=== PATIENT | female | born 1995 | race Caucasian/White ===

== ENCOUNTER 2018-03-07 00:10 | Outpatient (CLI) | payer OTHER, SELFPAY | END 2018-03-07 01:00 | disposition home or self-care (01) | LOC: M LDO 00:10 | DX: O26.853 Spotting complicating pregnancy, third trimester (principal); Z3A.28 28 weeks gestation of pregnancy | CPT/HCPCS: 76815 ==

== ENCOUNTER 2018-05-14 00:25 | Outpatient (CLI) | payer OTHER ==
[2018-05-14 04:06] LABS: CHLAMYDIA DNA AMPLIFICATION NEGATIVE (NEGATIVE); GC DNA AMPLIFICATION NEGATIVE (NEGATIVE)
== END 2018-05-14 01:48 | disposition home or self-care (01) ==
LOC: M LDO 00:25
DX: O47.1 False labor at or after 37 completed weeks of gestation (principal); Z3A.39 39 weeks gestation of pregnancy; O98.313 Other infections with a predominantly sexual mode of transmission complicating pregnancy, third trimester
CPT/HCPCS: 59025

== ENCOUNTER 2018-05-16 10:16 | Outpatient (CLI) | payer OTHER | END 2018-05-16 13:55 | disposition home or self-care (01) | LOC: M LDO 10:16 | DX: O47.1 False labor at or after 37 completed weeks of gestation (principal); Z3A.40 40 weeks gestation of pregnancy | CPT/HCPCS: 59025 ==

== ENCOUNTER 2018-05-17 03:46 | Inpatient (IN) | payer OTHER ==
[2018-05-17] MEDS: LR 1,000 ML IV (04:10)
[2018-05-17 04:41] LABS: HEMATOCRIT 33.4 % (36.0-47.0); MEAN CORPUSCULAR HEMOGLOBIN 29.9 pg (27.0-33.0); MEAN CORPUSCULAR HGB CONC 32.9 g/dl (32.0-36.5); MEAN CORPUSCULAR VOLUME 90.8 fl (80.0-96.0); PLATELET COUNT, AUTOMATED 250 10^3/uL (150-450); RED BLOOD COUNT 3.68 10^6/uL (4.00-5.40); RED CELL DISTRIBUTION WIDTH 13.8 % (11.5-14.5); WHITE BLOOD COUNT 13.5 10^3/uL (4.0-10.0)
[2018-05-17 04:50] LABS: APPEARANCE, URINE CLEAR (CLEAR); BACTERIA, URINE AUTO 1+ (NEGATIVE); BILIRUBIN, URINE AUTO NEGATIVE (NEGATIVE); BLOOD, URINE BLOOD NEGATIVE (NEGATIVE); COLOR, URINE STRAW (YELLOW); GLUCOSE, URINE (UA) AUTO NEGATIVE (NEGATIVE); KETONE, URINE AUTO NEGATIVE (NEGATIVE); LEUKOCYTE ESTERASE, URINE AUTO TRACE (NEGATIVE); NITRITE, URINE AUTO NEGATIVE (NEGATIVE); PROTEIN, URINE AUTO NEGATIVE (NEGATIVE); RBC, URINE AUTO 1 /HPF (0-3); SPECIFIC GRAVITY URINE AUTO 1.006 (1.002-1.035); SQUAMOUS EPITHELIAL CELL UR AU 2 /HPF (0-6); UROBILINOGEN, URINE AUTO 0.2 mg/dL (0.0-2.0); WBC, URINE AUTO 5 /HPF (0-3)
[2018-05-17] MEDS ORDERED: PROMETHAZINE INJ 25 MG/ML VIAL (J2550) As Ordered (04:59)
[2018-05-17] MEDS ORDERED: BUTORPHANOL 2 MG/ML INJ (J0595) As Ordered (04:59)
[2018-05-17 05:01] LABS: AMPHETAMINES URINE REFLEX NEGATIVE (NEGATIVE); BARBITURATES URINE REFLEX NEGATIVE (NEGATIVE); BENZODIAZEPINES URINE REFLEX NEGATIVE (NEGATIVE); COCAINE METABOLITE URINE REFLE NEGATIVE (NEGATIVE); METHADONE URINE REFLEX NEGATIVE (NEGATIVE); OPIATES URINE REFLEX NEGATIVE (NEGATIVE); PHENCYCLIDINE URINE REFLEX NEGATIVE (NEGATIVE)
[2018-05-17 05:02] LABS: CANNABINOIDS URINE REFLEX PENDING CONFIRMATION (NEGATIVE)
[2018-05-17] MEDS: PROMETHAZINE INJ 25 MG/ML VIAL (J2550) IV (05:12)
[2018-05-17] MEDS: BUTORPHANOL 2 MG/ML INJ (J0595) IV (05:12)
[2018-05-17] MEDS ORDERED: FENTANYL 2MCG/ML ROPIVACAINE 0.2% IN 0.9% NACL 200ML IVBAG As Ordered (08:13)
[2018-05-17] MEDS: PRENATAL VITAMINS CHEWABLE TABLET PO (09:00)
[2018-05-17] MEDS ORDERED: LACTATED RINGER'S 1000 ML IV (10:15)
[2018-05-17] MEDS ORDERED: EPIDURAL COMMENT XX (10:15)
[2018-05-17] MEDS ORDERED: EPIDURAL/PCA KEYS XX (10:15)
[2018-05-17] MEDS ORDERED: NALOXONE INJ 0.4 MG/1 ML VIAL (J2310) IV (10:15)
[2018-05-17] MEDS ORDERED: ePHEDrine SULFATE 25 MG/5 ML(5MG/ML) SYRINGE IV (10:15)
[2018-05-17] MEDS ORDERED: ONDANSETRON 4MG/2ML VIAL (J2405) IV ×2 (10:15→12:15)
[2018-05-17] MEDS ORDERED: REFRIGERATOR IV KEYS XX (10:15)
[2018-05-17] MEDS ORDERED: diphenhydrAMINE INJ 50MG/ML VIAL (J1200) IV (10:15)
[2018-05-17] MEDS ORDERED: FENTANYL/ROPIVACAINE/NACL BAG 200 ML EPIDURAL (10:15)
[2018-05-17] MEDS ORDERED: OXYTOCIN 30 UNITS IN 0.9% NaCl 500ML IV BAG (J2590) As Ordered (10:53)
[2018-05-17 12:08] LABS: CORD GAS ABE V -9.2; CORD GAS HCO3 V 17.8 MEQ/L; CORD GAS O2 SAT V 66.5 %; CORD GAS PCO2 V 42.2 mmHg; CORD GAS PH V 7.243 UNITS; CORD GAS PO2 V 30.4 mmHg; CORD GAS SBC V 16.6 MEQ/L; CORD GAS TCO2 V 19.1 MEQ/L
[2018-05-17 12:09] LABS: CORD GAS ABE A -10.8; CORD GAS HCO3 A 19.9 MEQ/L; CORD GAS O2 SAT A 19.4 %; CORD GAS PCO2 A 64.7 mmHg; CORD GAS PH A 7.106 UNITS; CORD GAS PO2 A 14.5 mmHg; CORD GAS SBC A 14.5 MEQ/L; CORD GAS TCO2 A 21.9 MEQ/L
[2018-05-17] MEDS: OXYTOCIN DRIP 30 UNITS in APPROPRIATE DILUENT 1 EA IV ×2 (12:13→14:11)
[2018-05-17] MEDS ORDERED: MEASLES,MUMPS,RUBELLA VACCINE INJ (MMR-II) (90707) SC (12:15)
[2018-05-17] MEDS ORDERED: DOCUSATE SODIUM 100 MG CAP PO (12:15)
[2018-05-17] MEDS ORDERED: ANUSOL HC CREAM 30GM TOP (12:15)
[2018-05-17] MEDS ORDERED: METHYLERGONOVINE MALEATE 0.2 MG TAB PO (12:15)
[2018-05-17] MEDS ORDERED: DIBUCAINE 1% OINTMENT 30GM TOP (12:15)
[2018-05-17] MEDS ORDERED: ACETAMINOPHEN TAB 650MG DOSE (2X325MG) PO (12:15)
[2018-05-17] MEDS: OXYTOCIN INJ 10 UNITS/ML VIAL (J2590) IV (12:30)
[2018-05-17] MEDS: IBUPROFEN 600 MG TAB PO (14:15)
[2018-05-18] MEDS: PRENATAL VITAMINS CHEWABLE TABLET PO (09:02)
[2018-05-18] MEDS: IBUPROFEN 600 MG TAB PO (09:04)
== END 2018-05-18 18:09 | disposition home or self-care (01) | DRG 775 ==
LOC: M LDO 03:46 → M LDI 04:04 → M OBS 15:36
PROVIDERS: Obstetrics & Gynecology
PROC: 0W8NXZZ Division of Female Perineum, External Approach (ICD-10-PCS; principal; 2018-05-17)
DX: O76 Abnormality in fetal heart rate and rhythm complicating labor and delivery (principal); Z37.0 Single live birth; Z3A.39 39 weeks gestation of pregnancy

== ENCOUNTER 2018-08-23 19:17 | Emergency (ER) | payer OTHER ==
[2018-08-23 22:29] LABS: KETONE, URINE AUTO RFX NEGATIVE (NEGATIVE); LEUKOCYTE ESTERASE UR AUTO RFX NEGATIVE (NEGATIVE); MUCUS, URINE RFX SMALL (NEGATIVE); NITRITE, URINE AUTO RFX NEGATIVE (NEGATIVE); RBC, URINE AUTO RFX 10 /HPF (0-3); SPECIFIC GRAVITY UR AUTO RFX 1.018 (1.002-1.035); SQUAM EPITHELIAL CELL UR AURFX 4 /HPF (0-6); WBC, URINE AUTO RFX 4 /HPF (0-3)
[2018-08-23 23:38] LABS: CHLAMYDIA DNA AMPLIFICATION NEGATIVE (NEGATIVE); GC DNA AMPLIFICATION NEGATIVE (NEGATIVE)
== END 2018-08-23 23:53 | disposition home or self-care (01) ==
LOC: M ED 19:17
DX: Z20.2 Contact with and (suspected) exposure to infections with a predominantly sexual mode of transmission (principal); Z72.0 Tobacco use
CPT/HCPCS: 81001

== ENCOUNTER 2018-11-27 14:04 | Emergency (ER) | payer OTHER ==
[~2018-11-27] VITALS: Ht 170.2 cm; Wt 56.8 kg
[~2018-11-27 14:04] MED LIST: ANUS2.5C2 TOP; DIBU1OIN TOP; IBUP-1114 PO; MAPA500T2 PO; PRENTAB9 PO; ZOFR4TAB16 PO
[2018-11-27 16:37] VITALS: BP 139/67
== END 2018-11-27 16:43 | disposition home or self-care (01) ==
LOC: M ED 14:04
DX: F43.0 Acute stress reaction (principal); F17.200 Nicotine dependence, unspecified, uncomplicated

== ENCOUNTER 2019-02-23 11:33 | Emergency (ER) | payer OTHER ==
[~2019-02-23] VITALS: Ht 170.2 cm; Wt 58.2 kg
[2019-02-23] MEDS ORDERED: KETOROLAC 60 MG/2 ML VIAL (J1885) IM ONE (12:15)
[2019-02-23] MEDS ORDERED: IBUP-1022 PO (12:55)
[2019-02-23 13:14] VITALS: BP 114/75
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
== END 2019-02-23 13:21 | disposition home or self-care (01) ==
LOC: M ED 11:33
DX: S93.401A Sprain of unspecified ligament of right ankle, initial encounter (principal); S80.811A Abrasion, right lower leg, initial encounter; F10.929 Alcohol use, unspecified with intoxication, unspecified; X50.1XXA Overexertion from prolonged static or awkward postures, initial encounter; Y92.89 Other specified places as the place of occurrence of the external cause; F17.210 Nicotine dependence, cigarettes, uncomplicated
CPT/HCPCS: 73590; 73610; 73630; 84702; 96372; 99284; J1885

== ENCOUNTER 2019-03-02 02:21 | Emergency (ER) | payer OTHER ==
[~2019-03-02] VITALS: Ht 170.2 cm; Wt 56.8 kg
[~2019-03-02 02:21] MED LIST changes: +IBUP-1022 PO
[2019-03-02] MEDS ORDERED: VITA100T59 PO (02:38)
[2019-03-02] MEDS ORDERED: NS 1,000 ML IV ONE (03:15)
[2019-03-02 03:32] LABS: BASO % 0.4 % (0.0-1.0); EOS # 0.4 10^3/uL (0.0-0.50); EOS % 3.5 % (0.0-3.0); HEMOGLOBIN 11.9 g/dl (12.0-15.5); LYMPH # 2.7 10^3/uL (1.5-6.5); LYMPH % 25.4 % (24.0-44.0); MEAN CORPUSCULAR HEMOGLOBIN 29.9 pg (27.0-33.0); MEAN CORPUSCULAR HGB CONC 33.1 g/dl (32.0-36.5); MEAN CORPUSCULAR VOLUME 90.5 fl (80.0-96.0); MONO # 0.5 10^3/uL (0.0-0.8); MONO % 4.5 % (0.0-5.0); NEUTROPHILS # 6.9 10^3/uL (1.8-7.7); NEUTROPHILS % 65.8 % (36.0-66.0); PLATELET COUNT, AUTOMATED 308 10^3/uL (150-450); RED BLOOD COUNT 3.98 10^6/uL (4.00-5.40); WHITE BLOOD COUNT 10.5 10^3/uL (4.0-10.0)
[2019-03-02 03:48] LABS: BLOOD UREA NITROGEN 12 MG/DL (7-18); CALCIUM LEVEL 8.7 MG/DL (8.5-10.1); CARBON DIOXIDE LEVEL 24 MEQ/L (21-32); CHLORIDE LEVEL 113 MEQ/L (98-107); ETHYL ALCOHOL (ETHANOL) 0.126 % (0.000-0.010); GLOMERULAR FILTRATION RATE > 60.0 (>60); GLUCOSE, FASTING 89 MG/DL (70-100); POTASSIUM SERUM 3.7 MEQ/L (3.5-5.1); SODIUM LEVEL 145 MEQ/L (136-145)
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
[2019-03-02] MEDS ORDERED: ceFAZolin SOD 1 GM in D5W MINI-BAG PLUS 50 ML IV ONE (05:30)
[2019-03-02] MEDS ORDERED: ADACEL/BOOSTRIX VACCINE (DIPHTH/PERTUSS/ACELL/TETANUS)0.5ML SYR (90715) IM ONE (05:30)
[2019-03-02] MEDS ORDERED: NS 1,000 ML IV SCH (05:45)
[2019-03-02 06:49] VITALS: BP 119/56
== END 2019-03-02 06:56 | disposition short-term general hospital (02) ==
LOC: M ED 02:21
DX: S02.82XA Fracture of other specified skull and facial bones, left side, initial encounter for closed fracture (principal); H05.222 Edema of left orbit; R93.0 Abnormal findings on diagnostic imaging of skull and head, not elsewhere classified; V47.6XXA Car passenger injured in collision with fixed or stationary object in traffic accident, initial encounter; Y92.410 Unspecified street and highway as the place of occurrence of the external cause; F17.210 Nicotine dependence, cigarettes, uncomplicated
CPT/HCPCS: 70450; 70486; 72125; 80048; 84702; 85025; 90471; 90715; 96374; 99285; G0480; J0690

== ENCOUNTER 2019-03-04 12:50 | Emergency (ER) | payer OTHER ==
[~2019-03-04] VITALS: Ht 170.2 cm; Wt 55.2 kg
[~2019-03-04 12:50] MED LIST changes: +VITA100T59 PO
[2019-03-04] MEDS ORDERED: ALEV220T22 PO (13:43)
[2019-03-04] MEDS ORDERED: KETOROLAC 30 MG/ML VIAL (J1885) IM ONE (15:30)
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
[2019-03-04 15:57] LABS: BASO % 0.3 % (0.0-1.0); EOS # 0.9 10^3/uL (0.0-0.50); EOS % 8.8 % (0.0-3.0); HEMATOCRIT 36.2 % (36.0-47.0); HEMOGLOBIN 12.1 g/dl (12.0-15.5); LYMPH # 2.4 10^3/uL (1.5-6.5); LYMPH % 24.8 % (24.0-44.0); MEAN CORPUSCULAR HEMOGLOBIN 30.5 pg (27.0-33.0); MEAN CORPUSCULAR HGB CONC 33.4 g/dl (32.0-36.5); MEAN CORPUSCULAR VOLUME 91.2 fl (80.0-96.0); MONO # 0.7 10^3/uL (0.0-0.8); MONO % 6.7 % (0.0-5.0); NEUTROPHILS # 5.7 10^3/uL (1.8-7.7); NEUTROPHILS % 59.1 % (36.0-66.0); PLATELET COUNT, AUTOMATED 332 10^3/uL (150-450); RED BLOOD COUNT 3.97 10^6/uL (4.00-5.40); WHITE BLOOD COUNT 9.7 10^3/uL (4.0-10.0)
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
[2019-03-04 16:21] LABS: ALBUMIN 4.2 GM/DL (3.2-5.2); ALT/SGPT 16 U/L (12-78); BILIRUBIN,DIRECT 0.2 MG/DL (0.0-0.2); BILIRUBIN,TOTAL 0.6 MG/DL (0.2-1.0); BLOOD UREA NITROGEN 15 MG/DL (7-18); CALCIUM LEVEL 9.1 MG/DL (8.5-10.1); CARBON DIOXIDE LEVEL 28 MEQ/L (21-32); CHLORIDE LEVEL 108 MEQ/L (98-107); CREATININE FOR GFR 0.82 MG/DL (0.55-1.30); GLOMERULAR FILTRATION RATE > 60.0 (>60); GLUCOSE, FASTING 76 MG/DL (70-100); LIPASE 67 U/L (73-393); POTASSIUM SERUM 4.1 MEQ/L (3.5-5.1); SODIUM LEVEL 141 MEQ/L (136-145); TOTAL PROTEIN 7.3 GM/DL (6.4-8.2)
[2019-03-04 16:41] VITALS: BP 102/59
== END 2019-03-04 16:42 | disposition home or self-care (01) ==
LOC: M ED 12:50
DX: Z04.1 Encounter for examination and observation following transport accident (principal); S09.90XA Unspecified injury of head, initial encounter; V89.2XXA Person injured in unspecified motor-vehicle accident, traffic, initial encounter; Z86.69 Personal history of other diseases of the nervous system and sense organs; Z72.0 Tobacco use
CPT/HCPCS: 70450; 70486; 80048; 80076; 83690; 85025; 96372; 99283; J1885

== ENCOUNTER → 2020-03-24 | Outpatient (CLI) | payer OTHER ==
[~2020-03-24] MED LIST changes: +ALEV220T22 PO
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
== END ==
LOC: M RAD 14:37
PROVIDERS: ATTEND Nurse Practitioner Family
DX: Z32.01 Encounter for pregnancy test, result positive (principal); Z3A.15 15 weeks gestation of pregnancy; Z36.87 Encounter for antenatal screening for uncertain dates

== ENCOUNTER 2021-01-08 16:22 | Emergency (ER) | payer OTHER ==
[~2021-01-08] VITALS: Ht 170.2 cm; Wt 67.2 kg
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
[2021-01-08 18:37] VITALS: BP 131/69
== END 2021-01-08 18:41 | disposition home or self-care (01) ==
LOC: M ED 16:22
DX: S60.041A Contusion of right ring finger without damage to nail, initial encounter (principal); S63.614A Unspecified sprain of right ring finger, initial encounter; W22.8XXA Striking against or struck by other objects, initial encounter; Y92.019 Unspecified place in single-family (private) house as the place of occurrence of the external cause; Y93.9 Activity, unspecified; Y99.9 Unspecified external cause status; F17.200 Nicotine dependence, unspecified, uncomplicated

== ENCOUNTER → 2022-07-20 | Outpatient (REF) ==
[2022-07-22 23:07] LABS: RUBEOLA IgG ANTIBODY <13.5 AU/mL (Immune >16.4)
== END ==
LOC: M LAB 15:55
PROVIDERS: ATTEND Nurse Practitioner Adult Health
DX: Z02.89 Encounter for other administrative examinations (principal)

== ENCOUNTER → 2022-07-27 | Outpatient (REF) | LOC: M RAD 15:51 | PROVIDERS: ATTEND Nurse Practitioner Adult Health | DX: Z02.9 Encounter for administrative examinations, unspecified (principal) ==

== ENCOUNTER → 2022-12-20 | Outpatient (REF) | payer MEDICAID, OTHER ==
[2022-12-20 13:58] LABS: AMORPHOUS SEDIMENT SMALL (NEGATIVE); APPEARANCE, URINE HAZY (CLEAR); BACTERIA, URINE AUTO NEGATIVE (NEGATIVE); BILIRUBIN, URINE AUTO NEGATIVE (NEGATIVE); BLOOD, URINE BLOOD 2+ (NEGATIVE); COLOR, URINE YELLOW (YELLOW); GLUCOSE, URINE (UA) AUTO NEGATIVE (NEGATIVE); KETONE, URINE AUTO NEGATIVE (NEGATIVE); LEUKOCYTE ESTERASE, URINE AUTO 1+ (NEGATIVE); MUCUS, URINE SMALL (NEGATIVE); NITRITE, URINE AUTO NEGATIVE (NEGATIVE); PROTEIN, URINE AUTO NEGATIVE (NEGATIVE); RBC, URINE AUTO 85 /HPF (0-3); SPECIFIC GRAVITY URINE AUTO 1.012 (1.002-1.035); SQUAMOUS EPITHELIAL CELL UR AU 14 /HPF (0-6); UROBILINOGEN, URINE AUTO 0.2 mg/dL (0.0-2.0); WBC, URINE AUTO 13 /HPF (0-3)
== END ==
LOC: M SFHCWAGY 13:06
PROVIDERS: ATTEND Obstetrics & Gynecology
DX: O09.293 Supervision of pregnancy with other poor reproductive or obstetric history, third trimester (principal); Z3A.00 Weeks of gestation of pregnancy not specified

== ENCOUNTER → 2023-01-26 | Outpatient (REF) | payer MEDICAID | LOC: M PLALAB 09:29 | PROVIDERS: ATTEND Advanced Practice Midwife | DX: O09.33 Supervision of pregnancy with insufficient antenatal care, third trimester (principal) ==

== ENCOUNTER 2023-02-05 19:14 | Inpatient (IN) | payer MEDICAID, OTHER ==
[~2023-02-05] VITALS: Ht 170.2 cm; Wt 78.2 kg
[2023-02-05] VITALS (8 sets, daily range): BP systolic 106–123; BP diastolic 56–70
[2023-02-05] MEDS ORDERED: HOME MED LIST COMPLETE! XX SCH (19:45)
[2023-02-05] MEDS ORDERED: LACTATED RINGER'S 1000 ML IV PRN (20:15)
[2023-02-05] MEDS ORDERED: CARBOPROST TROMETHAMINE 250 MCG/ML AMP IM PRN (20:15)
[2023-02-05] MEDS ORDERED: METHYLERGONOVINE MALEATE 0.2MG/ML 1ML VIAL IM PRN (20:15)
[2023-02-05] MEDS ORDERED: OXYTOCIN DRIP 30 UNITS in IV 1 EA IV SCH (20:15)
[2023-02-05] MEDS ORDERED: TRANEXAMIC ACID INJection 1,000 MG in NS 100 ML IV PRN (20:15)
[2023-02-05] MEDS ORDERED: OXYTOCIN DRIP 30 UNITS in IV 1 EA IV PRN ×4 (20:15)
[2023-02-05 20:44] LABS: HEMOGLOBIN 9.9 g/dl (12.0-15.5); MEAN CORPUSCULAR HEMOGLOBIN 31.2 pg (27.0-33.0); MEAN CORPUSCULAR HGB CONC 34.1 g/dl (32.0-36.5); MEAN CORPUSCULAR VOLUME 91.5 fl (80.0-96.0); PLATELET COUNT, AUTOMATED 229 10^3/uL (150-450); RED BLOOD COUNT 3.17 10^6/uL (4.00-5.40)
[2023-02-05 20:54] LABS: INR 0.89; PROTHROMBIN TIME 12.2 SECONDS (12.5-14.5)
[2023-02-05 20:55] LABS: PARTIAL THROMBOPLASTIN TIME 23.7 SECONDS (24.8-34.2)
[2023-02-05] MEDS: LR 1,000 ML IV SCH ×2 (20:57→22:19)
[2023-02-05 21:11] LABS: AMPHETAMINES URINE REFLEX NEGATIVE (NEGATIVE); BARBITURATES URINE REFLEX NEGATIVE (NEGATIVE); COCAINE METABOLITE URINE REFLE NEGATIVE (NEGATIVE); METHADONE URINE REFLEX NEGATIVE (NEGATIVE); OPIATES URINE REFLEX NEGATIVE (NEGATIVE); PHENCYCLIDINE URINE REFLEX NEGATIVE (NEGATIVE)
[2023-02-05 21:12] LABS: BENZODIAZEPINES URINE REFLEX NEGATIVE (NEGATIVE)
[2023-02-05 21:30] LABS: HEPATITIS B SURFACE ANTIGEN NEGATIVE (NEGATIVE)
[2023-02-05 21:51] LABS: HIV 1&2 SCREEN NEGATIVE (NEGATIVE)
[2023-02-05 22:29] LABS: HEPATITIS C VIRUS ABY INDEX < 0.0 INDEX (<0.8)
[2023-02-05 22:35] LABS: CANNABINOIDS URINE REFLEX PENDING CONFIRMATION (NEGATIVE)
[2023-02-06] VITALS (66 sets, daily range): BP systolic 93–146; BP diastolic 50–92
[2023-02-06] MEDS: LR 1,000 ML IV SCH ×2 (06:08→10:39)
[2023-02-06] MEDS ORDERED: ONDANSETRON 4MG 2ML VIAL IV PRN ×2 (09:40→10:55)
[2023-02-06] MEDS ORDERED: FENTANYL/ROPIVACAINE/NACL BAG 100 ML EPIDURAL SCH (10:55)
[2023-02-06] MEDS ORDERED: LR 500 ML IV PRN (10:55)
[2023-02-06] MEDS ORDERED: EPIDURAL/PCA KEYS XX PRN (10:55)
[2023-02-06] MEDS ORDERED: NALOXONE INJ 0.4MG/1ML VIAL IV PRN (10:55)
[2023-02-06] MEDS ORDERED: diphenhydrAMINE 50MG/ML VIAL IV PRN (10:55)
[2023-02-06] MEDS: ePHEDrine SULFATE 25 MG/5 ML(5MG/ML) SYRINGE IVP PRN ×2 (12:04→12:49)
[2023-02-06 17:05] LABS: CORD GAS ABE A -7.4; CORD GAS ABE V -1.7; CORD GAS HCO3 A 20.3 MMOL/L; CORD GAS HCO3 V 23.7 MMOL/L; CORD GAS O2 SAT A 18.8 %; CORD GAS O2 SAT V 44.7 %; CORD GAS PCO2 A 48.9 mmHg; CORD GAS PCO2 V 42.9 mmHg; CORD GAS PH A 7.236 UNITS; CORD GAS PH V 7.361 UNITS; CORD GAS PO2 A 13.5 mmHg; CORD GAS PO2 V 18.3 mmHg; CORD GAS SBC A 16.8 MMOL/L; CORD GAS SBC V 21.8 MMOL/L; CORD GAS TCO2 A 21.8 MMOL/L; CORD GAS TCO2 V 25.1 MMOL/L
[2023-02-06] MEDS ORDERED: DIBUCAINE 1% OINTMENT 30GM TOP PRN (17:20)
[2023-02-06] MEDS ORDERED: DOCUSATE SODIUM 100MG CAPSULE PO PRN (17:20)
[2023-02-06] MEDS ORDERED: RHOGAM 300MCG (1500IU) INJ IM SCH (17:20)
[2023-02-06] MEDS ORDERED: MOM 30ML SUSPENSION UDC PO PRN (17:20)
[2023-02-06] MEDS ORDERED: ANUSOL HC CREAM 30GM TOP PRN (17:20)
[2023-02-06] MEDS ORDERED: METHYLERGONOVINE MALEATE 0.2 MG TAB PO PRN (17:20)
[2023-02-06] MEDS: ACETAMINOPHEN 500 MG TAB PO PRN (21:27)
[2023-02-07] MEDS: ACETAMINOPHEN 500 MG TAB PO PRN (05:13)
[2023-02-07 06:00] VITALS: BP_SYST 100; BP_SYST 113; BP_DIAS 57; BP_DIAS 76
[2023-02-07] MEDS: PRENATAL VITAMINS CHEWABLE TABLET PO SCH (08:06)
[2023-02-07] MEDS: FERROUS SULFATE 325MG TAB PO SCH (08:06)
[2023-02-07] MEDS: IBUPROFEN 600MG TAB PO PRN ×2 (08:06→18:20)
[2023-02-07] MEDS ORDERED: ONDANSETRON 4MG TAB PO PRN (15:40)
[2023-02-07 18:00] VITALS: BP 113/76
[2023-02-08 06:00] VITALS: BP 117/69
[2023-02-08] MEDS ORDERED: MEASLES,MUMPS,RUBELLA VACCINE INJ (MMR-II) SC.IMMUN ONE (09:00)
[2023-02-08] MEDS ORDERED: INFLUENZA QUADRIVALENT PF VACCINE 0.5ML SYRINGE IM.IMMUN ONE (09:00)
[2023-02-08] MEDS: PRENATAL VITAMINS CHEWABLE TABLET PO SCH (12:22)
[2023-02-08] MEDS: FERROUS SULFATE 325MG TAB PO SCH (12:22)
[2023-02-08] MEDS ORDERED: FERR1TAB8 PO (13:27)
[2023-02-08] MEDS ORDERED: COLA100C5 PO (13:27)
[2023-02-08] MEDS ORDERED: IBUP-1022 PO (13:27)
[2023-02-08] MEDS ORDERED: ACET-683 PO (13:27)
[2023-02-13 07:07] LABS: Cannabinoid Positive (.); Carboxy THC Conf, MS, UR >300 ng/mL (Cutoff=10)
== END 2023-02-08 14:38 | disposition home or self-care (01) | DRG 560 ==
LOC: M LDO 19:14 → M LDI 20:11 → M OBS 02-06 19:42
PROVIDERS: ADMIT Obstetrics & Gynecology; ATTEND Obstetrics & Gynecology
PROC: 3E033VJ Introduction of Other Hormone into Peripheral Vein, Percutaneous Approach (ICD-10-PCS; 2023-02-05)
PROC: 10E0XZZ Delivery of Products of Conception, External Approach (ICD-10-PCS; principal; 2023-02-06)
PROC: 0HQ9XZZ Repair Perineum Skin, External Approach (ICD-10-PCS; 2023-02-06)
DX: O45.8X3 Other premature separation of placenta, third trimester (principal); O70.0 First degree perineal laceration during delivery; Z37.0 Single live birth; Z3A.37 37 weeks gestation of pregnancy; O09.30 Supervision of pregnancy with insufficient antenatal care, unspecified trimester

== ENCOUNTER 2024-05-26 16:35 | Emergency (ER) | payer OTHER ==
[~2024-05-26] VITALS: Ht 170.2 cm; Wt 64.3 kg
[~2024-05-26 16:35] MED LIST changes: +ACET-683 PO; +COLA100C5 PO; +FERR1TAB8 PO
[2024-05-26] MEDS: AUGMENTIN 875 MG TAB PO ONE (19:20)
[2024-05-26] MEDS: IBUPROFEN 600MG TAB PO ONE (19:20)
[2024-05-26] MEDS ORDERED: AMOX875T2 PO (19:21)
[2024-05-26] MEDS: BOOSTRIX VACCINE (TETANUS/DIPHTH/ACEL. PERTUSSIS) 0.5ML SYR IM ONE (19:21)
[2024-05-26 20:11] VITALS: BP 136/81; TEMP 97.8; O2SAT 99
== END 2024-05-26 20:17 | disposition home or self-care (01) ==
LOC: M ED 16:35
DX: S81.031A Puncture wound without foreign body, right knee, initial encounter (principal); W54.0XXA Bitten by dog, initial encounter; F12.10 Cannabis abuse, uncomplicated; F10.10 Alcohol abuse, uncomplicated; Z23 Encounter for immunization; Z79.2 Long term (current) use of antibiotics; Z79.1 Long term (current) use of non-steroidal anti-inflammatories (NSAID); Z79.899 Other long term (current) drug therapy; Y99.9 Unspecified external cause status; Y93.89 Activity, other specified; Y92.009 Unspecified place in unspecified non-institutional (private) residence as the place of occurrence of the external cause

== ENCOUNTER → 2024-07-01 | Outpatient (REF) ==
[~2024-07-01] MED LIST changes: +AMOX875T2 PO
== END ==
LOC: M EMP 10:06
PROVIDERS: ATTEND Family Medicine
DX: Z11.52 Encounter for screening for COVID-19 (principal)